=== PATIENT | male | born 1940 | race Caucasian/White ===

== ENCOUNTER 2017-07-15 10:19 | Outpatient (CLI) | payer MEDICARE | END 2017-07-15 10:20 | disposition home or self-care (01) | LOC: BICRAD 10:19 | PROVIDERS: ATTEND Family Medicine | DX: M25.511 Pain in right shoulder (principal); M19.011 Primary osteoarthritis, right shoulder ==

== ENCOUNTER 2017-09-10 08:11 | Outpatient (CLI) | payer MEDICARE ==
--- NOTE | 2017-09-10 11:15 | MRI ---
MRI RIGHT SHOULDER WITHOUT CONTRAST: Date: 09/10/17 HISTORY: M25.511, right shoulder pain. COMPARISON: None. FINDINGS: Exam is mildly limited due to motion artifact. Biceps Tendon: There is subluxation of the biceps tendon into an interstitial tear of the subscapularis. There is un dersurface tearing of the biceps tendon at the intertubercular groove. The intraarticular tendon also has some moderate tearing at the supraglenoid tubercle extending into the glenoid labrum. Labrum: Tear of the superior labrum with loss of volume. Mild degenerative signal in the anterior inferior la vickie. There is free edge tearing of the posterior superior labrum. Rotator Cuff: Extensive interstitial tearing of the subscapularis with extensive tendinosis. Full thickness, full w idth tear of the supraspinatus tendon retracted to the mid humeral head with severe tendinosis of the torn fibers. There is also full thickness, full width tear of the infraspinatus. Muscles: There is only 20-30% atrophy of the supraspinatus muscle. There is approximately 40% atrophy of the i nfraspinatus muscle and 30-40% atrophy of the subscapularis. Bones: Old fracture distal clavicle. There is elevation of the clavicle at the acromioclavicular joint with injury of the superior inferior acromioclavicular ligaments. Large volume subacromial/subdeltoid bursal effusion. IMPRESSION: 1. Full thickness, near full width supraspinatus tendon tear with a few fibers of rotator cable inse rting on anteriormost portion of the supraspinatus footplate. Majority of the tendon fibers are retra cted to the mid humeral head. 2. Full thickness, full width tear of the infraspinatus tendon. 3. Less than 25% atrophy of supraspinatus muscle with approximately 50% atrophy of the infraspinatus muscle. 4. Extensive interstitial tearing of the subscapularis. 5. Medial subluxation of the biceps tendon with undersurface tearing through an interstitial tear of the subscapularis. There is also tearing of the biceps tendon anchor at the supraglenoid tubercle ex tending into the superior labrum. 6. Widened acromioclavicular distance with injury of the superior and inferior acromioclavicular lig aments. 7. Large joint effusion. POS: [facility]
== END 2017-09-10 08:12 | disposition home or self-care (01) ==
LOC: TBSIIMAG 08:11
PROVIDERS: ATTEND Orthopaedic Surgery
DX: M25.511 Pain in right shoulder (principal); M75.101 Unspecified rotator cuff tear or rupture of right shoulder, not specified as traumatic; M62.511 Muscle wasting and atrophy, not elsewhere classified, right shoulder; S46.911A Strain of unspecified muscle, fascia and tendon at shoulder and upper arm level, right arm, initial encounter; S49.91XA Unspecified injury of right shoulder and upper arm, initial encounter; N18.3 Chronic kidney disease, stage 3 (moderate)
CPT/HCPCS: 36415; 80048; 83970

== ENCOUNTER 2018-05-12 10:12 | Outpatient (CLI) | payer MEDICARE ==
--- NOTE | 2018-05-12 13:44 | CT ---
CT ABDOMEN AND PELVIS WITHOUT CONTRAST: Multiple axial tomograms obtained through the abdomen and pelvis without IV enhancement. INDICATION: Gross hematuria. FINDINGS: The lung bases clear. Liver, spleen, and pancreas unremarkable given limitations of an unenhanced exam. There are scattere d granulomatous calcifications in the liver and spleen. Stomach and duodenum unremarkable. Adrenal glands normal. Review of kidneys shows no evidence of hydronephrosis. Ureters are normal caliber. Nonspecific marilyn nephric stranding is seen bilaterally. Urinary bladder is distended. The bladder and pelvis are sub optimally evaluated due to spray artifact from the right hip prosthesis. There is a suggestion of a focal area of mucosal thickening along the floor of the bladder to the left of midline. This should be further evaluated with cystoscopy given the history of hematuria. Small bowel loops are normal caliber. The appendix is unremarkable. Colon unremarkable. Diverticul osis of the lower left colon and sigmoid. Aorta normal caliber. No adenopathy apparent. IMPRESSION: 1. Question focal area of mucosal thickening in the floor of the bladder on the left to the left of midline. Recommend cystoscopy given the history of hematuria. 2. Nonspecific bilateral perinephric inflammatory stranding. 3. Diverticulosis without CT evidence of diverticulitis. 4. Incidentally noted and not mentioned above is a small umbilical hernia. POS: [facility]
== END 2018-05-12 10:13 | disposition home or self-care (01) ==
LOC: BICCT 10:12
PROVIDERS: ATTEND Urology
DX: R31.0 Gross hematuria (principal); K57.90 Diverticulosis of intestine, part unspecified, without perforation or abscess without bleeding; N15.1 Renal and perinephric abscess
CPT/HCPCS: 74176

== ENCOUNTER 2021-09-19 09:39 | Emergency (ER) | payer MEDICARE ==
[2021-09-19] MEDS ORDERED: Furosemide 40 MG/4 ML VIAL ONE (10:21)
[2021-09-19 10:22] LABS: #Basophils 0.1 thou/uL (0.0-0.2); #Eosinphils 0.5 thou/uL (0.0-0.7); #Lymphocytes 1.3 thou/uL (1.20-3.40); #Monocytes 0.6 thou/uL (0.11-0.59); #Neutrophils 6.4 thou/uL (1.40-6.50); %Basophils 0.7 % (0.0-1.0); %Eosinophils 6.1 % (0.0-10.0); %Lymphocytes 14.4 % (21.0-51.0); %Monocytes 6.9 % (0.0-10.0); Hemoglobin 12.4 g/dL (14.0-18.0); Mean Corpuscular HGB CONC 31.7 g/dL (32.0-36.0); Mean Corpuscular Hemoglobin 31.1 pg (27.0-31.0); Mean Corpuscular Volume 98.2 fL (78.0-98.0); Mean Platelet Volume 8.2 fL (7.4-10.4); Platelet Count 332 thou/uL (130-400); RBC Distribution Width 13.4 % (11.5-14.5); Red Blood Cell (RBC) Count 3.99 mill/uL (4.70-6.10); White Blood Cell (WBC) Count 8.9 thou/uL (4.8-10.8)
[2021-09-19 10:33] LABS: ALT (SGPT) 16 U/L (8-55); AST (SGOT) 20 U/L (5-34); Albumin 3.3 g/dL (3.4-4.8); Alkaline Phosphatase 73 U/L (40-110); Anion Gap 11 mmol/L (10-20); BUN (Urea Nitrogen) 40 mg/dL (8.4-25.7); Bilirubin, Total 0.5 mg/dL (0.2-1.2); Calc. Creatinine Clearance 0 mL/min (70-130); Calcium 8.9 mg/dL (7.8-10.44); Carbon Dioxide 22 mmol/L (23-31); Chloride 110 mmol/L (98-107); Globulin 3.5 g/dL (2.4-3.5); Glucose 99 mg/dL (83-110); Potassium 3.9 mmol/L (3.5-5.1); Protein, Total 6.8 g/dL (5.8-8.1); Sodium 139 mmol/L (136-145)
== END 2021-09-19 12:24 | disposition home or self-care (01) ==
LOC: ERS 09:39
DX: I11.0 Hypertensive heart disease with heart failure (principal); I50.9 Heart failure, unspecified; Z79.82 Long term (current) use of aspirin; Z79.899 Other long term (current) drug therapy
CPT/HCPCS: 71045; 80053; 85025; 93005; 96374; J1940

== ENCOUNTER 2024-02-17 07:09 | Inpatient (IN) | payer MEDICARE ==
[2024-02-17] MEDS ORDERED: Morphine 4 MG/ML VIAL ONE (07:41)
[2024-02-17] MEDS ORDERED: Ondansetron PF 4 MG/2 ML Vial ONE (07:41)
[2024-02-17 08:00] LABS: #Basophils Less than 0.03 10x3/uL (0.0-0.2); %Basophils 0.1 % (0.0-1.0); %Eosinophils 0.3 % (0.0-10.0); %Lymphocytes 5.4 % (21.0-51.0); %Neutrophils 86.7 % (42.0-75.0); Hematocrit 33.6 % (42.0-52.0); Hemoglobin 11.7 g/dL (14.0-18.0); Mean Corpuscular HGB CONC 34.8 g/dL (32.0-36.0); Mean Corpuscular Hemoglobin 32.7 pg (27.0-31.0); Mean Corpuscular Volume 93.9 fL (78.0-98.0); Mean Platelet Volume 10.8 fL (7.4-10.4); Platelet Count 236 10x3/uL (130-400); RBC Distribution Width 14.3 % (11.5-14.5); Red Blood Cell (RBC) Count 3.58 mill/uL (4.70-6.10)
[2024-02-17] MEDS ORDERED: Piperacillin/Tazobactam 4.5 GM VIAL ONE (08:07)
[2024-02-17] MEDS ORDERED: Sodium Chloride 0.9% 100 ML ONE (08:08)
[2024-02-17 08:23] LABS: INR-International Normal Ratio 1.1; Prothrombin Time 13.9 sec (12.0-14.7)
[2024-02-17 08:24] LABS: PTT 43.7 sec (22.9-36.1)
[2024-02-17 08:36] LABS: Bilirubin Negative (Negative); Blood, Urine Negative (Negative); Glucose, Urine (Dipstick) 250 mg/dL (Negative); Ketone, Urine Negative (Negative); Leukocyte Negative (Negative); Nitrite Negative (Negative); Protein, Urine (Dipstick) > or equal to 300 mg/dL (Neg-Trace); Specific Gravity, Urine 1.025 (1.005-1.030); Urobilinogen 0.2 mg/dL (Less than 2)
[2024-02-17 08:44] LABS: Bacteria/HPF None Seen HPF (None Seen); CAUTI Indications for Culture Fever or rigors; RBC/HPF 0-3 HPF (0-3); Squamous Epithelial None Seen HPF (0-3); WBC/HPF 0-3 HPF (0-3)
[2024-02-17 08:46] LABS: Clarity Hazy (Clear)
[2024-02-17 08:48] LABS: Urine Culture Reflex No No
[2024-02-17 09:17] LABS: ALT (SGPT) 15 U/L (8-55); AST (SGOT) 20 U/L (5-34); Albumin 2.5 g/dL (3.4-4.8); Alkaline Phosphatase 60 U/L (40-110); Anion Gap 11 mmol/L (10-20); BUN (Urea Nitrogen) 47 mg/dL (8.4-25.7); Bilirubin, Total 0.7 mg/dL (0.2-1.2); Calc. Creatinine Clearance 0 mL/min (70-130); Calcium 8.4 mg/dL (7.8-10.44); Carbon Dioxide 17 mmol/L (23-31); Chloride 111 mmol/L (98-107); Estimated GFR 25; Globulin 3.7 g/dL (2.4-3.5); Glucose 90 mg/dL (83-110); Lipase 32 U/L (8-78); Potassium 4.4 mmol/L (3.5-5.1); Protein, Total 6.2 g/dL (5.8-8.1); Sodium 135 mmol/L (136-145)
[2024-02-17] MEDS ORDERED: Morphine 2 MG/ML VIAL SLOW IVP PRN (10:37)
[2024-02-17] MEDS ORDERED: Dextrose 50% Abboject 50 ML SYRINGE SLOW IVP PRN (10:37)
[2024-02-17] MEDS ORDERED: hydrALAZINE 20 MG/ML VIAL SLOW IVP PRN (10:37)
[2024-02-17] MEDS ORDERED: Ipratropium/Albuterol 3 ML NEB NEB PRN (10:37)
[2024-02-17] MEDS ORDERED: Dextrose 5% in Water 1,000 ML IV PRN (10:37)
[2024-02-17] MEDS ORDERED: Acetaminophen 325 MG TAB PO PRN (10:37)
[2024-02-17] MEDS ORDERED: HYDROcodone/Acetaminophen 10/325 mg Tablet PO PRN (10:37)
[2024-02-17] MEDS ORDERED: Glucagon 1 MG/ML KIT IM PRN (10:37)
[2024-02-17] MEDS ORDERED: Ondansetron PF 4 MG/2 ML Vial IVP PRN (10:37)
[2024-02-17] MEDS ORDERED: Ondansetron HCl/PF 4 MG/2 ML Vial IVP PRN ×2 (12:15→15:51)
[2024-02-17] MEDS ORDERED: Promethazine HCl 25 MG/ML VIAL IM PRN (12:15)
[2024-02-17] MEDS ORDERED: PROPOFOL 20 ML ONE (13:51)
[2024-02-17] MEDS ORDERED: fentaNYL PF 100 MCG/2 ML SYRINGE ONE (13:51)
[2024-02-17] MEDS ORDERED: Lidocaine 2% PF 5 ML VIAL ONE (13:54)
[2024-02-17] MEDS ORDERED: Dexamethasone 20 MG/5 ML VIAL ONE (14:09)
[2024-02-17] MEDS ORDERED: Rocuronium Bromide 10 MG/ML (10ML VIAL) ONE (14:09)
[2024-02-17] MEDS ORDERED: PHENYLEPHRINE-NS 100 MCG/ML 10 ML SYRINGE ONE (14:09)
[2024-02-17] MEDS ORDERED: SUGAMMADEX SODIUM 200 MG/2 ML VIAL ONE ×2 (14:21→15:29)
[2024-02-17 16:57] VITALS: BMI 24.4
[2024-02-17] MEDS: Ketorolac Tromethamine 30 MG (1 mL) VIAL IVP SCH (16:57)
[2024-02-17] MEDS ORDERED: Piperacillin/Tazobactam 3.375 GM in Sodium Chloride 0.9% 100 ML IVPB SCH (18:00)
[2024-02-17] MEDS: Piperacillin/Tazobactam 3.375 GM in Sodium Chloride 0.9% 100 ML IVPB SCH ×2 (18:23→19:31)
[2024-02-17] MEDS: Famotidine 20 MG TAB PO SCH (20:57)
[2024-02-17] MEDS: Famotidine/PF 20 mg/2ml Vial SLOW IVP SCH (20:57)
[2024-02-18 06:07] LABS: #Basophils Less than 0.03 10x3/uL (0.0-0.2); #Eosinphils Less than 0.03 10x3/uL (0.0-0.7); %Basophils 0.1 % (0.0-1.0); %Lymphocytes 3.8 % (21.0-51.0); %Monocytes 3.5 % (0.0-10.0); Hematocrit 33.3 % (42.0-52.0); Hemoglobin 11.2 g/dL (14.0-18.0); Mean Corpuscular HGB CONC 33.6 g/dL (32.0-36.0); Mean Corpuscular Hemoglobin 31.9 pg (27.0-31.0); Mean Corpuscular Volume 94.9 fL (78.0-98.0); Platelet Count 224 10x3/uL (130-400); RBC Distribution Width 14.3 % (11.5-14.5); Red Blood Cell (RBC) Count 3.51 mill/uL (4.70-6.10)
[2024-02-18 06:26] LABS: Anion Gap 16 mmol/L (10-20); BUN (Urea Nitrogen) 55 mg/dL (8.4-25.7); Calc. Creatinine Clearance 22 mL/min (70-130); Calcium 8.4 mg/dL (7.8-10.44); Carbon Dioxide 18 mmol/L (23-31); Chloride 107 mmol/L (98-107); Estimated GFR 19; Glucose 164 mg/dL (83-110); Sodium 136 mmol/L (136-145)
[2024-02-18] MEDS: Sodium Chloride 0.9% 1,000 ML IV SCH (08:43)
[2024-02-18] MEDS: Acetaminophen 500 MG TAB PO SCH (08:44)
[2024-02-18] MEDS: Heparin 5,000 UNITS/ML VIAL SC SCH (08:45)
[2024-02-18] MEDS: Benzocaine/Menthol 1 LOZ LOZ PO PRN (16:08)
[2024-02-19 06:07] LABS: #Basophils Less than 0.03 10x3/uL (0.0-0.2); #Eosinphils Less than 0.03 10x3/uL (0.0-0.7); %Basophils 0.1 % (0.0-1.0); %Lymphocytes 4.7 % (21.0-51.0); %Monocytes 5.9 % (0.0-10.0); %Neutrophils 88.8 % (42.0-75.0); Hematocrit 29.4 % (42.0-52.0); Hemoglobin 9.8 g/dL (14.0-18.0); Mean Corpuscular HGB CONC 33.3 g/dL (32.0-36.0); Mean Corpuscular Hemoglobin 32.1 pg (27.0-31.0); Mean Corpuscular Volume 96.4 fL (78.0-98.0); Mean Platelet Volume 10.9 fL (7.4-10.4); Platelet Count 231 10x3/uL (130-400); RBC Distribution Width 14.6 % (11.5-14.5); Red Blood Cell (RBC) Count 3.05 mill/uL (4.70-6.10)
[2024-02-19 06:35] LABS: Anion Gap 14 mmol/L (10-20); BUN (Urea Nitrogen) 74 mg/dL (8.4-25.7); Calc. Creatinine Clearance 17 mL/min (70-130); Calcium 7.8 mg/dL (7.8-10.44); Carbon Dioxide 15 mmol/L (23-31); Chloride 112 mmol/L (98-107); Estimated GFR 14; Glucose 113 mg/dL (83-110); Potassium 5.4 mmol/L (3.5-5.1); Sodium 136 mmol/L (136-145)
[2024-02-19] MEDS: Famotidine 20 MG TAB PO SCH (08:04)
[2024-02-19] MEDS: Sodium Bicarbonate 150 MEQ in Dextrose 5% in Water 1,000 ML IV SCH (09:42)
[2024-02-19] MEDS: Albumin 25% 25 GM (100 mL) BOT IVPB SCH (12:06)
[2024-02-19] MEDS: Calcitriol 0.25 MCG CAP PO SCH (20:33)
[2024-02-20 07:03] LABS: #Basophils Less than 0.03 10x3/uL (0.0-0.2); %Basophils 0.1 % (0.0-1.0); %Eosinophils 1.4 % (0.0-10.0); %Lymphocytes 12.5 % (21.0-51.0); %Monocytes 8.5 % (0.0-10.0); Hematocrit 27.3 % (42.0-52.0); Hemoglobin 9.2 g/dL (14.0-18.0); Mean Corpuscular HGB CONC 33.7 g/dL (32.0-36.0); Mean Corpuscular Hemoglobin 32.1 pg (27.0-31.0); Mean Corpuscular Volume 95.1 fL (78.0-98.0); Mean Platelet Volume 10.9 fL (7.4-10.4); Platelet Count 241 10x3/uL (130-400); RBC Distribution Width 14.5 % (11.5-14.5); Red Blood Cell (RBC) Count 2.87 mill/uL (4.70-6.10)
[2024-02-20 07:19] LABS: Anion Gap 15 mmol/L (10-20); BUN (Urea Nitrogen) 78 mg/dL (8.4-25.7); Calc. Creatinine Clearance 16 mL/min (70-130); Calcium 7.6 mg/dL (7.8-10.44); Carbon Dioxide 20 mmol/L (23-31); Chloride 107 mmol/L (98-107); Estimated GFR 13; Glucose 102 mg/dL (83-110); Potassium 4.3 mmol/L (3.5-5.1); Sodium 138 mmol/L (136-145)
[2024-02-20] MEDS ORDERED: traMADol HCl 50 MG TAB PO PRN (11:29)
[2024-02-20] MEDS ORDERED: Non-Formulary Item 1 EACH (Ferrous Sulfate [Iron] 325 MG Tablet) PO SCH (11:30)
[2024-02-20 12:13] VITALS: BP 129/75; TEMP 98
[2024-02-20] MEDS ORDERED: Ferrous Sulfate 325 MG TAB PO SCH (12:45)
[2024-02-20] MEDS: Piperacillin/Tazobactam 3.375 GM in Sodium Chloride 0.9% 100 ML IVPB SCH (14:58)
[2024-02-20] MEDS: Acetaminophen 500 MG TAB PO SCH (14:58)
[2024-02-20] MEDS ORDERED: hydrALAZINE 25 MG TAB PO SCH (15:00)
[2024-02-20] MEDS ORDERED: Amoxicillin/Potassium Clav 500 MG TAB PO SCH (21:00)
[2024-02-20] MEDS ORDERED: Atorvastatin Calcium 40 MG TAB PO SCH (21:00)
[2024-02-21] MEDS ORDERED: Allopurinol 300 MG TAB PO SCH (09:00)
[2024-02-21] MEDS ORDERED: Aspirin Chewable 81 MG TAB PO SCH (09:00)
[2024-02-21] MEDS ORDERED: Empagliflozin 25 MG TAB PO SCH (09:00)
[2024-02-21] MEDS ORDERED: Non-Formulary Item 1 EACH (Dapagliflozin Propanediol [Farxiga] 10 MG Tablet) PO SCH (09:00)
== END 2024-02-20 15:00 | disposition home or self-care (01) | DRG 397 ==
LOC: ERS 07:09 → SDC 11:50 → SJJU 16:25 → OBSVTOIN 02-18 13:26
PROVIDERS: ADMIT Student in an Organized Health Care Education/Training Program; ATTEND Student in an Organized Health Care Education/Training Program
PROC: 0DTJ4ZZ Resection of Appendix, Percutaneous Endoscopic Approach (ICD-10-PCS; principal; 2024-02-17)
DX: K35.33 Acute appendicitis with perforation, localized peritonitis, and gangrene, with abscess (principal); N17.0 Acute kidney failure with tubular necrosis; K51.90 Ulcerative colitis, unspecified, without complications; I13.0 Hypertensive heart and chronic kidney disease with heart failure and stage 1 through stage 4 chronic kidney disease, or unspecified chronic kidney disease; N18.9 Chronic kidney disease, unspecified; Z79.899 Other long term (current) drug therapy; E78.5 Hyperlipidemia, unspecified; Z95.0 Presence of cardiac pacemaker; I50.9 Heart failure, unspecified
CPT/HCPCS: 36415; 71045; 74176; 80048; 80053; 81001; 83605; 83690; 85025; 85610; 85730; 87040; 88304; 93005; 94760; A4314; A4649; C1889; J1100; J1644; J1885; J2001; J2270; J2405; J2543; J2704; J3490; J7050; J7070; P9047

== ENCOUNTER 2025-05-09 09:57 | Inpatient (IN) | payer MEDICARE ==
[2025-05-09 11:02] LABS: #Basophils Less than 0.03 10x3/uL (0.0-0.2); #Eosinophils 0.35 10x3/uL (0.0-0.7); #Monocytes 0.58 10x3/uL (0.11-0.59); #Neutrophils 5.76 10x3/uL (1.40-6.50); %Basophils 0.3 % (0.0-1.0); %Eosinophils 4.2 % (0.0-10.0); %Lymphocytes 8.4 % (21.0-51.0); %Monocytes 7.9 % (0.0-10.0); %Neutrophils 78.5 % (42.0-75.0); Hematocrit 33.7 % (42.0-52.0); Hemoglobin 10.8 g/dL (14.0-18.0); Mean Corpuscular Hemoglobin 29.8 pg (27.0-31.0); Mean Corpuscular Volume 93.3 fL (78.0-98.0); Platelet Count 171 10x3/uL (130-400); Red Blood Cell (RBC) Count 3.59 mill/uL (4.70-6.10); White Blood Cell (WBC) Count 7.34 10x3/uL (4.8-10.8)
[2025-05-09 11:25] LABS: BUN (Urea Nitrogen) 130 mg/dL (8.4-25.7)
[2025-05-09 11:28] LABS: ALT (SGPT) 41 U/L (Less than 45); AST (SGOT) 60 U/L (11-34); Albumin 3.0 g/dL (3.1-4.5); Alkaline Phosphatase 93 U/L (40-110); Anion Gap 20 mmol/L (10-20); Bilirubin, Total 0.6 mg/dL (0.3-1.2); Calc. Creatinine Clearance 0 mL/min (70-130); Calcium 9.1 mg/dL (7.8-10.44); Carbon Dioxide 16 mmol/L (23-31); Chloride 108 mmol/L (98-107); Globulin 4.2 g/dL (2.4-3.5); Glucose 98 mg/dL (83-110); Potassium 5.6 mmol/L (3.5-5.1); Sodium 138 mmol/L (136-145)
[2025-05-09 12:37] LABS: Bacteria/HPF 1+ HPF (None Seen); CAUTI Indications for Culture Fever or rigors; Glucose, Urine (Dipstick) Normal (Negative); Leukocyte Negative Leu/uL (Negative); Protein, Urine (Dipstick) 300 mg/dL (Neg-Trace); Specific Gravity, Urine 1.016 (1.002-1.036); WBC/HPF 0-3 HPF (0-3)
[2025-05-09 12:38] LABS: Urine Culture Reflex No No
[2025-05-09] MEDS ORDERED: Melatonin 3 MG TAB PO PRN (13:59)
[2025-05-09 14:07] LABS: Magnesium 2.6 mg/dL (1.6-2.6)
[2025-05-09] MEDS: LOKELMA 10 GM PACKET PO SCH (14:35)
[2025-05-09 19:17] LABS: Anion Gap 18 mmol/L (10-20); Calc. Creatinine Clearance 0 mL/min (70-130); Calcium 9.0 mg/dL (7.8-10.44); Carbon Dioxide 19 mmol/L (23-31); Chloride 108 mmol/L (98-107); Glucose 137 mg/dL (83-110); Potassium 4.5 mmol/L (3.5-5.1); Sodium 140 mmol/L (136-145)
[2025-05-09 19:27] LABS: BUN (Urea Nitrogen) 132 mg/dL (8.4-25.7)
[2025-05-09] MEDS: Calcitriol 0.25 MCG CAP PO SCH (19:58)
[2025-05-09] MEDS: FLU (Fluad Triv) 25-26 (65UP)PF 45 MCG/0.5 ML Syringe IM ONE (19:59)
[2025-05-09] MEDS: Artificial Tear Ophth Sol 15 ML BOT EA EYE PRN (21:29)
[2025-05-09 22:48] VITALS: BMI 28.8
[2025-05-10 05:25] LABS: #Basophils Less than 0.03 10x3/uL (0.0-0.2); #Eosinophils 0.51 10x3/uL (0.0-0.7); #Monocytes 0.42 10x3/uL (0.11-0.59); #Neutrophils 3.98 10x3/uL (1.40-6.50); %Basophils 0.3 % (0.0-1.0); %Eosinophils 8.7 % (0.0-10.0); %Lymphocytes 16.0 % (21.0-51.0); %Monocytes 7.1 % (0.0-10.0); %Neutrophils 67.7 % (42.0-75.0); Hematocrit 32.5 % (42.0-52.0); Hemoglobin 10.4 g/dL (14.0-18.0); Mean Corpuscular Hemoglobin 30.0 pg (27.0-31.0); Mean Corpuscular Volume 93.7 fL (78.0-98.0); Platelet Count 145 10x3/uL (130-400); Red Blood Cell (RBC) Count 3.47 mill/uL (4.70-6.10); White Blood Cell (WBC) Count 5.88 10x3/uL (4.8-10.8)
[2025-05-10 05:56] LABS: BUN (Urea Nitrogen) 127 mg/dL (8.4-25.7)
[2025-05-10 06:03] LABS: Anion Gap 14 mmol/L (10-20); Calc. Creatinine Clearance 17 mL/min (70-130); Calcium 9.0 mg/dL (7.8-10.44); Carbon Dioxide 22 mmol/L (23-31); Chloride 109 mmol/L (98-107); Glucose 90 mg/dL (83-110); Potassium 4.7 mmol/L (3.5-5.1); Sodium 140 mmol/L (136-145)
[2025-05-10] MEDS: Aspirin Chewable 81 MG TAB PO SCH (09:25)
[2025-05-10] MEDS: Ferrous Sulfate 325 MG TAB PO SCH (09:25)
[2025-05-10] MEDS: Albumin 25% 25 GM (100 mL) BOT IVPB SCH (11:47)
[2025-05-10] MEDS: Furosemide 20 MG (2 mL) VIAL SLOW IVP SCH (13:45)
[2025-05-11 04:29] LABS: #Basophils Less than 0.03 10x3/uL (0.0-0.2); #Eosinophils 0.49 10x3/uL (0.0-0.7); #Monocytes 0.53 10x3/uL (0.11-0.59); #Neutrophils 4.66 10x3/uL (1.40-6.50); %Basophils 0.3 % (0.0-1.0); %Eosinophils 7.5 % (0.0-10.0); %Lymphocytes 13.0 % (21.0-51.0); %Monocytes 8.1 % (0.0-10.0); %Neutrophils 70.9 % (42.0-75.0); Hematocrit 30.0 % (42.0-52.0); Hemoglobin 9.7 g/dL (14.0-18.0); Mean Corpuscular Hemoglobin 30.1 pg (27.0-31.0); Mean Corpuscular Volume 93.2 fL (78.0-98.0); Platelet Count 123 10x3/uL (130-400); Red Blood Cell (RBC) Count 3.22 mill/uL (4.70-6.10); White Blood Cell (WBC) Count 6.56 10x3/uL (4.8-10.8)
[2025-05-11 04:51] LABS: Anion Gap 16 mmol/L (10-20); BUN (Urea Nitrogen) 124 mg/dL (8.4-25.7); Calc. Creatinine Clearance 17 mL/min (70-130); Calcium 9.0 mg/dL (7.8-10.44); Carbon Dioxide 21 mmol/L (23-31); Chloride 108 mmol/L (98-107); Glucose 92 mg/dL (83-110); Potassium 4.5 mmol/L (3.5-5.1); Sodium 140 mmol/L (136-145)
[2025-05-11] MEDS: Albumin 25% 25 GM (100 mL) BOT IVPB SCH (11:37)
[2025-05-11] MEDS: EPOETIN ALFA-EPBX (ESRD) 10,000 UNITS/ML VIAL SC SCH (14:32)
[2025-05-11] MEDS: Acetaminophen 325 MG TAB PO PRN (17:24)
[2025-05-12 05:12] LABS: #Basophils Less than 0.03 10x3/uL (0.0-0.2); #Eosinophils 0.43 10x3/uL (0.0-0.7); #Monocytes 0.43 10x3/uL (0.11-0.59); #Neutrophils 4.18 10x3/uL (1.40-6.50); %Basophils 0.3 % (0.0-1.0); %Eosinophils 7.3 % (0.0-10.0); %Lymphocytes 14.3 % (21.0-51.0); %Monocytes 7.3 % (0.0-10.0); %Neutrophils 70.5 % (42.0-75.0); Hematocrit 28.8 % (42.0-52.0); Hemoglobin 9.1 g/dL (14.0-18.0); Mean Corpuscular Hemoglobin 30.2 pg (27.0-31.0); Mean Corpuscular Volume 95.7 fL (78.0-98.0); Platelet Count 131 10x3/uL (130-400); Red Blood Cell (RBC) Count 3.01 mill/uL (4.70-6.10); White Blood Cell (WBC) Count 5.93 10x3/uL (4.8-10.8)
[2025-05-12 06:08] LABS: BUN (Urea Nitrogen) 149 mg/dL (8.4-25.7)
[2025-05-12 06:11] LABS: Anion Gap 17 mmol/L (10-20); Calc. Creatinine Clearance 18 mL/min (70-130); Calcium 9.3 mg/dL (7.8-10.44); Carbon Dioxide 20 mmol/L (23-31); Chloride 109 mmol/L (98-107); Glucose 89 mg/dL (83-110); Potassium 4.5 mmol/L (3.5-5.1); Sodium 141 mmol/L (136-145)
[2025-05-12] MEDS: Methocarbamol 500 MG TAB PO SCH (20:09)
[2025-05-13 06:10] LABS: #Basophils Less than 0.03 10x3/uL (0.0-0.2); #Eosinophils 0.44 10x3/uL (0.0-0.7); #Monocytes 0.55 10x3/uL (0.11-0.59); #Neutrophils 4.83 10x3/uL (1.40-6.50); %Basophils 0.3 % (0.0-1.0); %Eosinophils 6.6 % (0.0-10.0); %Lymphocytes 12.4 % (21.0-51.0); %Monocytes 8.2 % (0.0-10.0); %Neutrophils 72.4 % (42.0-75.0); Hematocrit 31.2 % (42.0-52.0); Hemoglobin 10.0 g/dL (14.0-18.0); Mean Corpuscular Hemoglobin 30.0 pg (27.0-31.0); Mean Corpuscular Volume 93.7 fL (78.0-98.0); Platelet Count 138 10x3/uL (130-400); Red Blood Cell (RBC) Count 3.33 mill/uL (4.70-6.10); White Blood Cell (WBC) Count 6.68 10x3/uL (4.8-10.8)
[2025-05-13 06:30] LABS: BUN (Urea Nitrogen) 142 mg/dL (8.4-25.7)
[2025-05-13 06:32] LABS: Anion Gap 17 mmol/L (10-20); Calc. Creatinine Clearance 17 mL/min (70-130); Calcium 9.2 mg/dL (7.8-10.44); Carbon Dioxide 19 mmol/L (23-31); Chloride 109 mmol/L (98-107); Glucose 95 mg/dL (83-110); Potassium 4.7 mmol/L (3.5-5.1); Sodium 140 mmol/L (136-145)
[2025-05-14 05:25] LABS: #Basophils Less than 0.03 10x3/uL (0.0-0.2); #Eosinophils 0.48 10x3/uL (0.0-0.7); #Monocytes 0.52 10x3/uL (0.11-0.59); #Neutrophils 4.94 10x3/uL (1.40-6.50); %Basophils 0.3 % (0.0-1.0); %Eosinophils 6.7 % (0.0-10.0); %Lymphocytes 16.5 % (21.0-51.0); %Monocytes 7.3 % (0.0-10.0); %Neutrophils 69.1 % (42.0-75.0); Hematocrit 32.7 % (42.0-52.0); Hemoglobin 10.4 g/dL (14.0-18.0); Mean Corpuscular Hemoglobin 30.5 pg (27.0-31.0); Mean Corpuscular Volume 95.9 fL (78.0-98.0); Platelet Count 132 10x3/uL (130-400); Red Blood Cell (RBC) Count 3.41 mill/uL (4.70-6.10); White Blood Cell (WBC) Count 7.15 10x3/uL (4.8-10.8)
[2025-05-14 05:50] LABS: BUN (Urea Nitrogen) 143 mg/dL (8.4-25.7)
[2025-05-14 05:53] LABS: ALT (SGPT) 30 U/L (Less than 45); AST (SGOT) 32 U/L (11-34); Albumin 3.5 g/dL (3.1-4.5); Alkaline Phosphatase 71 U/L (40-110); Anion Gap 16 mmol/L (10-20); Bilirubin, Total 0.5 mg/dL (0.3-1.2); Calc. Creatinine Clearance 18 mL/min (70-130); Calcium 9.5 mg/dL (7.8-10.44); Carbon Dioxide 20 mmol/L (23-31); Chloride 107 mmol/L (98-107); Globulin 3.3 g/dL (2.4-3.5); Glucose 103 mg/dL (83-110); Magnesium 2.7 mg/dL (1.6-2.6); Potassium 4.9 mmol/L (3.5-5.1); Sodium 138 mmol/L (136-145)
[2025-05-14] MEDS: Furosemide 40 MG TAB PO SCH (08:47)
[2025-05-14 12:34] VITALS: BMI 29.7
[2025-05-15 05:20] LABS: #Basophils Less than 0.03 10x3/uL (0.0-0.2); #Eosinophils 0.45 10x3/uL (0.0-0.7); #Monocytes 0.48 10x3/uL (0.11-0.59); #Neutrophils 4.26 10x3/uL (1.40-6.50); %Basophils 0.3 % (0.0-1.0); %Eosinophils 7.5 % (0.0-10.0); %Lymphocytes 13.6 % (21.0-51.0); %Monocytes 7.9 % (0.0-10.0); %Neutrophils 70.5 % (42.0-75.0); Hematocrit 33.6 % (42.0-52.0); Hemoglobin 10.6 g/dL (14.0-18.0); Mean Corpuscular Hemoglobin 30.6 pg (27.0-31.0); Mean Corpuscular Volume 97.1 fL (78.0-98.0); Platelet Count 138 10x3/uL (130-400); Red Blood Cell (RBC) Count 3.46 mill/uL (4.70-6.10); White Blood Cell (WBC) Count 6.04 10x3/uL (4.8-10.8)
[2025-05-15 05:48] LABS: BUN (Urea Nitrogen) 137 mg/dL (8.4-25.7)
[2025-05-15 05:53] LABS: ALT (SGPT) 22 U/L (Less than 45); AST (SGOT) 38 U/L (11-34); Albumin 3.4 g/dL (3.1-4.5); Alkaline Phosphatase 76 U/L (40-110); Anion Gap 18 mmol/L (10-20); Bilirubin, Total 0.5 mg/dL (0.3-1.2); Calc. Creatinine Clearance 19 mL/min (70-130); Calcium 9.7 mg/dL (7.8-10.44); Carbon Dioxide 15 mmol/L (23-31); Chloride 111 mmol/L (98-107); Globulin 3.2 g/dL (2.4-3.5); Glucose 95 mg/dL (83-110); Magnesium 2.6 mg/dL (1.6-2.6); Potassium 5.2 mmol/L (3.5-5.1); Sodium 139 mmol/L (136-145)
[2025-05-15] MEDS: LOKELMA 10 GM PACKET PO SCH (09:17)
[2025-05-15] MEDS: Furosemide 40 MG TAB PO SCH (09:18)
[2025-05-15 12:37] LABS: Hematocrit 32.2 % (42.0-52.0); Hemoglobin 10.4 g/dL (14.0-18.0); Mean Corpuscular Hemoglobin 30.6 pg (27.0-31.0); Mean Corpuscular Volume 94.7 fL (78.0-98.0); Platelet Count 125 10x3/uL (130-400); Red Blood Cell (RBC) Count 3.40 mill/uL (4.70-6.10); White Blood Cell (WBC) Count 7.01 10x3/uL (4.8-10.8)
[2025-05-16 05:50] LABS: #Basophils Less than 0.03 10x3/uL (0.0-0.2); #Eosinophils 0.30 10x3/uL (0.0-0.7); #Monocytes 0.38 10x3/uL (0.11-0.59); #Neutrophils 4.11 10x3/uL (1.40-6.50); %Basophils 0.2 % (0.0-1.0); %Eosinophils 5.4 % (0.0-10.0); %Lymphocytes 14.1 % (21.0-51.0); %Monocytes 6.8 % (0.0-10.0); %Neutrophils 73.3 % (42.0-75.0); Hematocrit 33.7 % (42.0-52.0); Hemoglobin 10.6 g/dL (14.0-18.0); Mean Corpuscular Hemoglobin 30.3 pg (27.0-31.0); Mean Corpuscular Volume 96.3 fL (78.0-98.0); Platelet Count 141 10x3/uL (130-400); Red Blood Cell (RBC) Count 3.50 mill/uL (4.70-6.10); White Blood Cell (WBC) Count 5.60 10x3/uL (4.8-10.8)
[2025-05-16 06:15] LABS: BUN (Urea Nitrogen) 138 mg/dL (8.4-25.7)
[2025-05-16 06:16] LABS: Anion Gap 16 mmol/L (10-20); Calc. Creatinine Clearance 19 mL/min (70-130); Calcium 10.0 mg/dL (7.8-10.44); Carbon Dioxide 21 mmol/L (23-31); Chloride 108 mmol/L (98-107); Glucose 105 mg/dL (83-110); Potassium 5.2 mmol/L (3.5-5.1); Sodium 140 mmol/L (136-145)
[2025-05-16] MEDS: predniSONE 20 MG TAB PO SCH (11:46)
[2025-05-16] MEDS: LOKELMA 10 GM PACKET PO SCH (12:26)
[2025-05-16] MEDS: Heparin 5,000 UNITS/ML VIAL SC SCH (15:15)
[2025-05-16] MEDS: Furosemide 20 MG (2 mL) VIAL SLOW IVP SCH (17:15)
[2025-05-16 17:49] VITALS: BP 124/61
[2025-05-17 03:49] LABS: #Basophils Less than 0.03 10x3/uL (0.0-0.2); #Eosinophils Less than 0.03 10x3/uL (0.0-0.7); #Monocytes Less than 0.03 10x3/uL (0.11-0.59); #Neutrophils 2.00 10x3/uL (1.40-6.50); %Basophils 0.0 % (0.0-1.0); %Eosinophils 0.0 % (0.0-10.0); %Lymphocytes 8.1 % (21.0-51.0); %Monocytes 0.9 % (0.0-10.0); %Neutrophils 90.5 % (42.0-75.0); Hematocrit 28.7 % (42.0-52.0); Hemoglobin 9.2 g/dL (14.0-18.0); Mean Corpuscular Hemoglobin 30.8 pg (27.0-31.0); Mean Corpuscular Volume 96.0 fL (78.0-98.0); Platelet Count 112 10x3/uL (130-400); Red Blood Cell (RBC) Count 2.99 mill/uL (4.70-6.10); White Blood Cell (WBC) Count 2.21 10x3/uL (4.8-10.8)
[2025-05-17 04:17] LABS: BUN (Urea Nitrogen) 137 mg/dL (8.4-25.7)
[2025-05-17 04:28] LABS: Anion Gap 17 mmol/L (10-20); Calc. Creatinine Clearance 18 mL/min (70-130); Calcium 9.6 mg/dL (7.8-10.44); Carbon Dioxide 19 mmol/L (23-31); Chloride 108 mmol/L (98-107); Glucose 159 mg/dL (83-110); Potassium 5.3 mmol/L (3.5-5.1); Sodium 139 mmol/L (136-145)
[2025-05-17] MEDS ORDERED: predniSONE 20 MG TAB PO SCH (08:00)
[2025-05-18] MEDS: Senokot S 8.6-50 MG TAB PO PRN (08:24)
[2025-05-18] MEDS: Furosemide 100 MG (10 mL) VIAL SLOW IVP SCH (12:08)
[2025-05-18] MEDS: Guaifenesin DM 100-10/5 ML UDCUP PO PRN (14:04)
[2025-05-19 11:29] VITALS: TEMP 97.8
[2025-05-19] MEDS: guaiFENesin/DM ER PO SCH (11:46)
[2025-05-19] MEDS ORDERED: guaiFENesin/DM ER PO SCH (21:00)
== END 2025-05-19 12:00 | disposition hospice, home (50) | DRG 196 ==
LOC: ERS 09:57 → OBS 13:10 → IMCU/EMU 05-16 18:59
PROVIDERS: ADMIT Internal Medicine; ATTEND Hospitalist
PROC: 3E02340 Introduction of Influenza Vaccine into Muscle, Percutaneous Approach (ICD-10-PCS; principal; 2025-05-09)
PROC: 3E03329 Introduction of Other Anti-infective into Peripheral Vein, Percutaneous Approach (ICD-10-PCS; 2025-05-09)
PROC: 5A0935A Assistance with Respiratory Ventilation, Less than 24 Consecutive Hours, High Flow/Velocity Cannula (ICD-10-PCS; 2025-05-16)
PROC: 5A0945A Assistance with Respiratory Ventilation, 24-96 Consecutive Hours, High Flow/Velocity Cannula (ICD-10-PCS; 2025-05-16)
DX: J84.10 Pulmonary fibrosis, unspecified (principal); I50.33 Acute on chronic diastolic (congestive) heart failure; J96.21 Acute and chronic respiratory failure with hypoxia; I13.0 Hypertensive heart and chronic kidney disease with heart failure and stage 1 through stage 4 chronic kidney disease, or unspecified chronic kidney disease; N18.4 Chronic kidney disease, stage 4 (severe); E87.20 Acidosis, unspecified; N17.9 Acute kidney failure, unspecified; L03.116 Cellulitis of left lower limb; Z51.5 Encounter for palliative care; Z66 Do not resuscitate; E87.5 Hyperkalemia; R31.0 Gross hematuria; D64.9 Anemia, unspecified; E78.5 Hyperlipidemia, unspecified; I10 Essential (primary) hypertension; N18.9 Chronic kidney disease, unspecified; R31.21 Asymptomatic microscopic hematuria; I25.10 Atherosclerotic heart disease of native coronary artery without angina pectoris; C61 Malignant neoplasm of prostate; R04.0 Epistaxis; I35.0 Nonrheumatic aortic (valve) stenosis; I27.81 Cor pulmonale (chronic); I36.1 Nonrheumatic tricuspid (valve) insufficiency; E88.09 Other disorders of plasma-protein metabolism, not elsewhere classified; Z98.890 Other specified postprocedural states; Z95.0 Presence of cardiac pacemaker; Z79.899 Other long term (current) drug therapy; Z79.82 Long term (current) use of aspirin; Z87.891 Personal history of nicotine dependence; Z23 Encounter for immunization
CPT/HCPCS: 36415; 71045; 71046; 78580; 80048; 80053; 81001; 83735; 83880; 84100; 84484; 85025; 87086; 93005; 93306; 93798; 93970; 94640; A9540; J0692; J1644; J1940; J2919; J7030; J7512; P9047; Q5105